=== PATIENT | male | born 1985 | race Caucasian/White ===

== ENCOUNTER 2024-09-06 19:48 | Inpatient (IN) | payer OTHER ==
[2024-09-06 20:12] VITALS: RESP 16
[2024-09-06] MEDS ORDERED: ACETAMINOPHEN 325 MG TABLET (FP) PO PRN (20:48)
[2024-09-06] MEDS ORDERED: DICYCLOMINE HCL 10 MG CAPSULE PO PRN (20:48)
[2024-09-06] MEDS ORDERED: BENZOCAINE/MENTHOL (CHLORASEPTIC ) LOZENGE MM PRN (20:48)
[2024-09-06] MEDS ORDERED: ONDANSETRON *ODT* 4 MG TABLET SL PRN (20:48)
[2024-09-06] MEDS ORDERED: IBUPROFEN 600 MG TABLET (FP) PO PRN (20:48)
[2024-09-06] MEDS ORDERED: POLYETHYLENE GLYCOL (HEALTHYLAX) 3350 17 GM PACKET PO PRN (20:48)
[2024-09-06] MEDS ORDERED: NICOTINE POLACRILEX 2 MG GUM BUC PRN (20:48)
[2024-09-06] MEDS ORDERED: guaiFENesin 600 MG TABLET.ER (FP) PO PRN (20:48)
[2024-09-06] MEDS ORDERED: IBUPROFEN 400 MG TABLET (FP) PO PRN (20:48)
[2024-09-06] MEDS ORDERED: METHOCARBAMOL 500 MG TABLET PO PRN (20:48)
[2024-09-06] MEDS ORDERED: MAGNESIUM HYDROX 2400MG/30ML ORAL SUSPENSION 30 ML CUP PO PRN (20:48)
[2024-09-06] MEDS ORDERED: MAG HYDROX/AL HYDROX/SIMETH 30 ML UNIT-DOSE CUP PO PRN (20:48)
[2024-09-06] MEDS ORDERED: BISMUTH SUBSALICYLATE 524 MG/30 ML PO PRN (20:48)
[2024-09-06] MEDS ORDERED: BENZONATATE 200 MG CAPSULE PO PRN (20:48)
[2024-09-06] MEDS ORDERED: LOPERAMIDE HCL 2 MG CAPSULE PO PRN (20:48)
[2024-09-06] MEDS ORDERED: NALOXONE (NARCAN) HCL 4 MG/0.1 ML SPRAY NS PRN (20:48)
[2024-09-06 21:18] VITALS: BMI 21.5
[2024-09-06] MEDS ORDERED: LORazepam 1 MG TABLET ONE (21:23)
[2024-09-06] MEDS ORDERED: hydrOXYzine PAMOATE 25 MG CAPSULE (FP) PO ONE (21:23)
[2024-09-06] MEDS: LORazepam 1 MG TABLET PO PRN (21:25)
[2024-09-06] MEDS: hydrOXYzine PAMOATE 25 MG CAPSULE (FP) PO PRN (21:27)
[2024-09-06] MEDS: LORazepam 2 MG TABLET PO SCH (22:13)
[2024-09-06] MEDS: MELATONIN 5 MG TABLETS PO SCH (22:14)
[2024-09-06] MEDS: THIAMINE 100 MG TABLET PO SCH (22:14)
[2024-09-07 09:01] VITALS: BP 107/78; PULSE 75; TEMP 97.8
[2024-09-07] MEDS: PRENATAL VITAMINS W/ FOLIC ACID TABLET (FP) PO SCH (10:49)
[2024-09-07] MEDS: NICOTINE 21 MG/24 HOURS TOPICAL PATCH TD SCH (10:49)
[2024-09-07 10:55] LABS: HEMATOCRIT 34.5 % (40.1-51.0); HEMOGLOBIN 12.2 g/dL (13.7-17.5); MCHC 35.4 g/dl (32.3-36.5); MEAN CELL VOLUME 106.8 fl (79.0-92.2); MEAN PLT VOLUME 9.8 fl (9.4-12.4); PLATELET COUNT # 192 x10^3/uL (163-337); RDW 12.9 % (12.0-15.6)
[2024-09-07 11:07] LABS: POTASSIUM 4.2 mmol/L (3.5-5.1)
[2024-09-07 11:09] LABS: CALCIUM 9.1 mg/dL (8.5-10.1)
[2024-09-07 11:12] LABS: ALBUMIN 3.3 g/dl (3.4-5.0)
[2024-09-07 11:13] LABS: BLOOD UREA NITROGEN 12.9 mg/dL (7-18)
[2024-09-07 11:15] LABS: CREATININE 0.6 mg/dL (0.55-1.3)
[2024-09-07 11:17] LABS: BILIRUBIN,TOTAL 0.7 mg/dL (0.2-1); TOT PROT 5.9 g/dl (6.4-8.2)
[2024-09-07] MEDS ORDERED: MELATONIN 5 MG TABLETS PO SCH (22:00)
[2024-09-08] MEDS ORDERED: LORazepam 1 MG TABLET PO SCH (05:00)
[2024-09-09] MEDS ORDERED: LORazepam 0.5 MG TABLET PO PRN
[2024-09-09] MEDS ORDERED: LORazepam 0.5 MG TABLET PO SCH (05:00)
[2024-09-10] MEDS ORDERED: LORazepam 0.5 MG TABLET PO ONE (05:00)
== END 2024-09-07 14:06 | disposition left against medical advice (07) | DRG 770 ==
LOC: YASAS 19:48 → Y3N 21:11
PROVIDERS: ADMIT Allergy & Immunology; ATTEND Allergy & Immunology
PROC: HZ2ZZZZ Detoxification Services for Substance Abuse Treatment (ICD-10-PCS; principal; 2024-09-06)
DX: F10.230 Alcohol dependence with withdrawal, uncomplicated (principal); F12.20 Cannabis dependence, uncomplicated; F17.210 Nicotine dependence, cigarettes, uncomplicated; F41.9 Anxiety disorder, unspecified; G47.00 Insomnia, unspecified; J41.0 Simple chronic bronchitis
CPT/HCPCS: 36415; 80053; 80305; 80307; 85027; 86780; 93005; 93010